=== PATIENT | female | born 1970 | race Two or more races ===

== ENCOUNTER 2023-05-01 13:58 | Emergency (ER) | payer MEDICAID, OTHER ==
[~2023-05-01] VITALS: Ht 154.9 cm; Wt 93.5 kg
[2023-05-01 14:57] VITALS: O2SAT 94
[2023-05-01] MEDS: MORPHINE SULFATE 4 MG/ML SYR/VIAL IM ONE (15:14)
[2023-05-01 15:45] VITALS: BP 112/61; PULSE 70; RESP 18
[2023-05-01] MEDS ORDERED: MELO7.5T7 PO (16:12)
== END 2023-05-01 16:21 | disposition home or self-care (01) ==
LOC: ER 13:58
DX: S20.211A Contusion of right front wall of thorax, initial encounter (principal); V43.52XA Car driver injured in collision with other type car in traffic accident, initial encounter; Y93.89 Activity, other specified; Y92.59 Other trade areas as the place of occurrence of the external cause; Y99.8 Other external cause status
CPT/HCPCS: 71250; 74176; 96372; 99285; J2270